=== PATIENT | male | born 1970 | race Caucasian/White ===

== ENCOUNTER 2016-08-12 14:45 | Emergency (ER) | payer MEDICAID ==
[~2016-08-12] VITALS: Ht 172.7 cm; Wt 79.5 kg
[~2016-08-12 14:45] MED LIST: ACYC400T2 PO; ELIM TOP; PERM120L5 TP
[2016-08-12 15:34] VITALS: Ht 172.7 cm; Wt 79.5 kg
[2016-08-12] MEDS ORDERED: SULF1TAB30 PO (15:48)
[2016-08-12] MEDS ORDERED: CEPH500C PO (15:48)
[2016-08-12] MEDS ORDERED: ELIM TOP (15:48)
[2016-08-12] MEDS ORDERED: DOXY100T20 PO (15:49)
--- NOTE | 2016-08-12 15:54 | ERD ---
ER Documentation Chief Complaint Date/Time DATE: 08/12/16 TIME: 15:51 Chief Complaint GENERALIZED BODY RASH,ITCHINESS HPI Patient is a 45-year-old male who presents with an itchy rash all over his body particularly on his upper extremities and chest and back that he has had for over 2 months. He has been seen for this before and was diagnosed with scabies and was given antibiotics and cream which she states helped. He denies any fever. Denies any pain only a lot of itchiness. Denies any bleeding or drainage. Denies any trauma. He states his symptoms are worse at night when he is laying in his bed. ROS All systems reviewed and are negative except as per history of present illness. Medications Home Meds Active Scripts Doxycycline Hyclate* (Doxycycline Hyclate*) 100 Mg Tablet.dr, 100 MG PO BID for 14 Days, TAB Prov:GLADYS KRUSE PA-C 08/12/16 Permethrin* (Elimite*) 5% Cr, 1 APPLIC TOP ONCE, #60 GM Prov:GLADYS KRUSE PA-C 08/12/16 Cephalexin* (Cephalexin*) 500 Mg Capsule, 500 MG PO Q6, #28 CAP Prov:GLADYS KRUSE PA-C 08/12/16 Sulfamethoxazole/Trimethoprim (Bactrim 400-80 mg Tablet) 1 Each Tablet, 1 EACH PO BID, #7 TAB Prov:GALDYS KRUSE PA-C 08/12/16 Permethrin* (Elimite*) 5% Cr, 1 APPLIC TOP ONCE for 1 Day, TUB Prov:RYAN VILLALPANDO 05/12/16 Permethrin (Permethrin) 120 Ml Liquid, 120 ML TP QHS for 1 Day, #1 BOT 0 Refills Prov:NADIA WRIGHT PA-C 03/25/16 Acyclovir* (Acyclovir*) 400 Mg Tablet, 400 MG PO TID for 10 Days, #30 TAB 0 Refills Prov:NADIA WRIGHT PA-C 03/25/16 Allergies Allergies: Coded Allergies: No Known Allergy (Unverified , 03/25/16) PMhx/Soc History of Surgery: No Anesthesia Reaction: No Hx Neurological Disorder: No Hx Respiratory Disorders: No Hx Cardiac Disorders: No Hx Psychiatric Problems: No Hx Miscellaneous Medical Probl: No Hx Alcohol Use: No Hx Substance Use: No Hx Tobacco Use: No FmHx Family History: No diabetes Physical Exam Vitals Vital Signs Date Time Temp Pulse Resp B/P Pulse Ox O2 Delivery O2 Flow Rate FiO2 08/12/16 15:34 98.7 94 18 123/88 98 Physical Exam Const: [] Head: Atraumatic Eyes: Normal Conjunctiva ENT: Normal External Ears, Nose and Mouth. Neck: Full range of motion..~ No meningismus. Resp: Clear to auscultation bilaterally Cardio: Regular rate and rhythm, no murmurs Skin: Multiple scab-like lesions all over the patient's upper extremities most are very small less than 1 cm however some are large and he states this is secondary to scratching due to extreme itchiness. Oropharynx is clear no lip or tongue swelling, no vesicles, no pustules Procedures/MDM 45-year-old male presents with what appears to be scabies. This is a moderate to severe case as he has had on and off for over 2 months and has been scratching profusely. He has multiple scab-like lesion secondary to scratching. Therefore in order to prevent infection I also aside from giving him permethrin cream I gave him prescription for doxycycline. I sling to the patient that he should follow-up with his primary care doctor for outpatient referral to see a blankmaker if his symptoms do not resolve especially since this is been an ongoing problem for him. His vital signs are normal he is otherwise well-appearing in no distress Recommended this patient follow up with her primary care doctor within 48 hours or return to the emergency room for any worsening of symptoms. However this time I do believe there is suitable for outpatient management. I answered all their questions and they agreed with the plan and were discharged home. Departure Diagnosis: Primary Impression: Scabies Condition: Stable Patient Instructions: Scabies Additional Instructions: Llame al doctor LUZ y krissy nicole TRUDY PARA DENTRO DE 1-2 ARCHULETA.Dgale a la secretaria que nosotros le instruimos hacer esta trudy.Avise o llame si carson condicin se empeora antes de la trudy. Regresa aqui si peor o no mejor. GLADYS KRUSE PA-C Aug 12, 2016 15:54
== END 2016-08-12 15:55 | disposition home or self-care (01) ==
LOC: E/R 14:45
DX: B86 Scabies (principal)
CPT/HCPCS: 99284

== ENCOUNTER 2016-08-25 17:58 | Emergency (ER) | payer MEDICAID ==
[~2016-08-25] VITALS: Wt 81.9 kg
[~2016-08-25 17:58] MED LIST changes: +CEPH500C PO; +DOXY100T20 PO; +SULF1TAB30 PO
[2016-08-25] MEDS ORDERED: DIPHENHYDRAMINE 50 MG INJ IM ONE (19:30)
[2016-08-25] MEDS ORDERED: KEN25L60 TOP (19:35)
[2016-08-25] MEDS ORDERED: HYDR-842 PO (19:35)
[2016-08-25 19:47] VITALS: PULSE 88; RESP 16
--- NOTE | 2016-08-26 03:41 | ERD ---
ER Documentation Chief Complaint Date/Time DATE: 08/26/16 TIME: 03:29 Chief Complaint RASH FOR THE PAST MONTH. SEEN FOR SAME. NOT BETTER. NO SOB HPI Patient is a 45-year-old male complaining of lesions associated with itching on bilateral forearms, scalp, bilateral lower legs and upper chest. Patient went to ED on August 12, 2016 and was diagnosed with scabies. Patient was discharged from the same day and was prescribed with Bactrim, Keflex, permethrin and doxycycline. patient states that the itching has improved for a few days but was never resolved. Patient was advised to see his PCP or undercover cop but was not able to do so. Patient regularly sleeps night with the at bedside, but does not have any skin symptoms. Patient denies any fevers, shortness of breath, dizziness, paresthesia or paresis. ROS All systems reviewed and are negative except as per history of present illness. Medications Home Meds Active Scripts Triamcinolone Acetonide* (Kenalog*) 0.025%-60ML Lotion, 1 APPLIC TOP BID for 14 Days, #1 BOTTLE Prov:BECKI HER 08/25/16 Hydroxyzine Hcl* (Atarax*) 25 Mg Tab, 25 MG PO Q6H Y for ITCHING, #30 TAB Prov:BECKI HER 08/25/16 Doxycycline Hyclate* (Doxycycline Hyclate*) 100 Mg Tablet.dr, 100 MG PO BID for 14 Days, TAB Prov:GLADYS KRUSE PA-C 08/12/16 Permethrin* (Elimite*) 5% Cr, 1 APPLIC TOP ONCE, #60 GM Prov:GLADYS KRUSE PA-C 08/12/16 Cephalexin* (Cephalexin*) 500 Mg Capsule, 500 MG PO Q6, #28 CAP Prov:GLADYS KRUSE PA-C 08/12/16 Sulfamethoxazole/Trimethoprim (Bactrim 400-80 mg Tablet) 1 Each Tablet, 1 EACH PO BID, #7 TAB Prov:GLADYS KRUSE PA-C 08/12/16 Permethrin* (Elimite*) 5% Cr, 1 APPLIC TOP ONCE for 1 Day, TUB Prov:RYAN VILLALPANDO 05/12/16 Permethrin (Permethrin) 120 Ml Liquid, 120 ML TP QHS for 1 Day, #1 BOT 0 Refills Prov:NADIA WRIGHT-C 03/25/16 Acyclovir* (Acyclovir*) 400 Mg Tablet, 400 MG PO TID for 10 Days, #30 TAB 0 Refills Prov:ADRIANANADIA PENNINGTON 03/25/16 Allergies Allergies: Coded Allergies: No Known Allergy (Unverified , 03/25/16) PMhx/Soc Medical and Surgical Hx: pt denies Medical Hx, pt denies Surgical Hx History of Surgery: No Anesthesia Reaction: No Hx Neurological Disorder: No Hx Respiratory Disorders: No Hx Cardiac Disorders: No Hx Psychiatric Problems: No Hx Miscellaneous Medical Probl: No Hx Alcohol Use: Yes (occasional) Hx Substance Use: No Hx Tobacco Use: Yes Smoking Status: Current every day smoker Physical Exam Vitals Vital Signs Date Time Temp Pulse Resp B/P Pulse Ox O2 Delivery O2 Flow Rate FiO2 08/25/16 19:47 88 16 100 Room Air 08/25/16 18:00 97.4 90 20 126/78 98 Physical Exam Physical Exam CONST: Well-developed, well-nourished, in no acute distress. HEENT: Atraumatic. Normal Conjunctiva. EOM intact. TM intact. External ear is normal. Clear oropharnyx without erythema. Moist mucous membranes. Supple. Full range of motion. No meningismus. No submandibular induration. RESP: Clear to auscultation bilaterally. No wheezing. CARDIO: Regular rate and rhythm, no murmurs ABD: Soft, non tender, non distended. Normal bowel sounds. No McBurney's point tenderness. No guarding or rigidity. No peritoneal signs. SKIN: Open lesions due to scratching/abrasion with surrounding erythema on bilateral forearms, scalp, upper chest and anterior tibial area. No purulent drainage noted. BACK: No midline or flank tenderness EXT: No cyanosis or edema. Distal pulses equal and bilateral NEURO: Awake and alert, appropriate for age Results 24 hrs Current Medications Medications (Trade) Dose Ordered Sig/Bharath Route PRN Reason Start Time Stop Time Status Last Admin Dose Admin Diphenhydramine HCl (Benadryl) 50 mg ONCE ONCE IM 08/25/16 19:30 08/25/16 19:31 DC 08/25/16 19:39 Procedures/MDM EMERGENCY DEPARTMENT COURSE/MEDICAL DECISION MAKING This is a 45-year-old male who comes to the emergency room secondary to complaints of generalized lesions and itching. The patient was given Benadryl IM in the department for itching. On re- evaluation, the patient's symptoms improved. I believe this is not scabies because her does not show the same symptoms even though she sleeps [id number] with the patient. My primary diagnosis is rash and nonspecific skin eruption. Secondary diagnosis is itching with irritation Differential diagnoses considered, included but not limited to scabies, cellulitis, fungal infection, eczema, drug eruption,. Pt is hemodynamically stable upon reassessment. The patient was discharged for outpatient management with a prescription for Atarax and triamcinolone cream. The patient was advised to followup with their PMD and undercover cop in 1-2 days and to return to the Emergency Department if there are any new or worsening symptoms. The patient understood and agreed with the diagnosis, treatment and plan. Patient is stable for discharge at this time. Departure Diagnosis: Primary Impression: Rash and nonspecific skin eruption Additional Impression: Itching with irritation Condition: Good Patient Instructions: Self-Care for Skin Rashes Referrals: [facility] () Usted se fernandez hecho un examen mdico de control que le indica que no est en nicole condicin que requiera tratamiento urgente en el Departamento de Emergencia. Un estudio ms profundo y el tratamiento de carson condicin pueden esperar sin ningn riesgo hasta que usted sea atendida/o en el consultorio de carson mdico o nicole cl loida. Es responsabilidad suya arreglar nicole tom para el seguimiento del delma. MANEJO DE CONDICIONES NO URGENTES EN EL FUTURO 1) Si usted tiene un mdico de atencin primaria: Usted debera llamar a carson mdico de atencin primaria antes de venir al departamento de emergencia. Despus de las horas de consultorio, carson doctor o carson asociado/a est disponible por telfono. El mdico o enfermero de mau en el servicio telefnico puede asesorarle por dawit medio para atender el problema, o delma contrario se puede programar nicole tom. 2) Si usted no tiene un mdico de atencin primaria: Llame al mdico o clnica de referencia que aparece abajo tahir las horas de consultorio para hacer nicole tom para que le vean. CLINICAS: [facility] [phone] [facility] [phone] [facility] [phone] [facility] [phone] [facility] [phone] [address] [facility] [phone] [facility]. [facility] () Usted se fernandez hecho un examen mdico de control que le indica que no est en nicole condicin que requiera tratamiento urgente en el Departamento de Emergencia. Un estudio ms profundo y el tratamiento de carson condicin pueden esperar sin ningn riesgo hasta que usted sea atendida/o en el consultorio de carson mdico o nicole cl loida. Es responsabilidad suya arreglar nicole tom para el seguimiento del delma. MANEJO DE CONDICIONES NO URGENTES EN EL FUTURO 1) Si usted tiene un mdico de atencin primaria: Usted debera llamar a carson mdico de atencin primaria antes de venir al departamento de emergencia. Despus de las horas de consultorio, carson doctor o carson asociado/a est disponible por telfono. El mdico o enfermero de mau en el servicio telefnico puede asesorarle por dawit medio para atender el problema, o delma contrario se puede programar nicole tom. 2) Si usted no tiene un mdico de atencin primaria: Llame al mdico o condado institucions de referencia que aparece abajo tahir las horas de consultorio para hacer nicole tom para que le vean. SI USTED NO PUEDE PAGAR PARA MAN UN MEDICO puede ir a: [facility] [address] [place] [address] [facility] [address] [place], [place] [id number] [place] [address]+[facility] [address] [place] [address] [facility] [address] [place], [place] [phone] Additional Instructions: Follow-up with your primary care physician in 1-2 days and request for a undercover cop consult for skin biopsy. Return to the emergency department immediately should you have any new or worsening symptoms, uncontrolled fevers, or other unexplained symptoms. Take all medications as directed. BECKI HER Aug 26, 2016 03:41
== END 2016-08-25 19:55 | disposition home or self-care (01) ==
LOC: FTE 17:58
DX: R21 Rash and other nonspecific skin eruption (principal); F17.210 Nicotine dependence, cigarettes, uncomplicated
CPT/HCPCS: 96372; J1200; Z7502